=== PATIENT | male | born 1995 | race Caucasian/White ===

== ENCOUNTER 2021-10-29 21:40 | Emergency (ER) | payer BC ==
[2021-10-30] MEDS ORDERED: Ibuprofen 800 MG Tab PO ONE (01:12)
[2021-10-30] MEDS ORDERED: Acetaminophen 325 MG Tab PO ONE (01:12)
== END 2021-10-30 01:27 | disposition home or self-care (01) ==
LOC: MW.ED 10-30 00:33
DX: B34.9 Viral infection, unspecified (principal)
CPT/HCPCS: 99283; A9270; 99282

== ENCOUNTER 2023-01-03 17:32 | Emergency (ER) | payer OTHER, BC ==
[2023-01-03] MEDS ORDERED: Diphtheria,Pertussis(Acell),Tetanus Vaccine 0.5 ML Syringe IM ONE (18:01)
[2023-01-03] MEDS ORDERED: Lidocaine 1% PF 2 ML SDV INJECT ONE (18:37)
== END 2023-01-03 20:12 | disposition home or self-care (01) ==
LOC: MW.ED 17:32
DX: S09.90XA Unspecified injury of head, initial encounter (principal); S01.81XA Laceration without foreign body of other part of head, initial encounter; K08.89 Other specified disorders of teeth and supporting structures; Z23 Encounter for immunization; W01.0XXA Fall on same level from slipping, tripping and stumbling without subsequent striking against object, initial encounter
CPT/HCPCS: 12013; 70450; 70450-26; 70486; 70486-26; 90471; 99283; 99283-25; J3490

== ENCOUNTER 2024-04-09 10:35 | Emergency (ER) | payer BC, OTHER ==
[2024-04-09] MEDS: Morphine 4 MG/ML Syringe IVPUSH ONE (10:45)
[2024-04-09] MEDS: Ondansetron 4 MG/2 ML SDV IVPUSH STA (10:46)
[2024-04-09 11:43] LABS: BASOPHILS ABSOLUTE AUTO 0.04 K/uL (0.00-0.20); BASOPHILS PERCENT AUTO 0.4 % (0.0-1.0); EOSINOPHILS ABSOLUTE AUTO 0.08 K/uL (0.00-0.45); EOSINOPHILS PERCENT AUTO 0.7 % (0.0-6.0); HEMATOCRIT 41.5 % (42.0-52.0); IMMATURE GRAN ABSOLUTE AUTO 0.05 K/uL (0.00-0.05); IMMATURE GRAN PERCENT AUTO 0.4 % (0.0-0.4); LYMPHOCYTES ABSOLUTE AUTO 1.61 K/uL (1.00-4.80); LYMPHOCYTES PERCENT AUTO 14.4 % (24.0-44.0); MEAN CORPUSCULAR HEMOGLOBIN 31.3 pg (28.0-32.0); MEAN CORPUSCULAR HGB CONC 36.1 g/dL (32.0-36.0); MEAN CORPUSCULAR VOLUME 86.6 fL (83.0-99.0); MONOCYTES ABSOLUTE AUTO 0.68 K/uL (0.00-0.80); MONOCYTES PERCENT AUTO 6.1 % (0.0-8.0); NEUTROPHILS ABSOLUTE AUTO 8.69 K/uL (1.80-7.70); PLATELET COUNT,PLT 193 K/uL (150-400); RED BLOOD CELL COUNT 4.79 M/uL (4.52-5.90); WHITE BLOOD CELL COUNT,WBC 11.15 K/uL (3.9-11.3)
[2024-04-09 11:57] LABS: INR 0.99 (0.86-1.11)
[2024-04-09 12:21] LABS: A/G RATIO 1.1 (0.9-1.6); ALBUMIN 3.6 g/dL (3.4-5.0); BILIRUBIN TOTAL 0.3 mg/dL (0.2-1.0); CALCIUM 8.7 mg/dL (8.5-10.1); CARBON DIOXIDE,CO2 28.2 mmol/L (21.0-32.0); CREATININE 0.9 mg/dL (0.8-1.3); EST CRCL DRUG DOSING (CG) 127.3 mL/min; POTASSIUM,K 4.6 mmol/L (3.5-5.1); PROTEIN TOTAL,TP 6.8 g/dL (6.4-8.2)
[2024-04-09] MEDS: Iopamidol 755 MG/ML 500 ML Multipack Bottle IVPUSH STA (12:30)
[2024-04-09] MEDS: HYDROmorphone 1 MG/ML Syringe IVPUSH ONE (12:30)
== END 2024-04-09 14:10 | disposition home or self-care (01) ==
LOC: MW.ED 10:35
DX: S06.0X1A Concussion with loss of consciousness of 30 minutes or less, initial encounter (principal); S32.019A Unspecified fracture of first lumbar vertebra, initial encounter for closed fracture; Z75.8 Other problems related to medical facilities and other health care; V69.49XA Driver of heavy transport vehicle injured in collision with other motor vehicles in traffic accident, initial encounter
CPT/HCPCS: 36415; 70450; 71045; 71260; 72125; 72131; 72170; 73562; 73630; 74177; 80053; 83690; 85025; 85610; 86850; 86900; 86901; 96374; 96375; 99284; J1171; J2270; J2405; Q9967

== ENCOUNTER 2025-02-03 19:22 | Emergency (ER) | payer BC, OTHER ==
[2025-02-03] MEDS: Acetaminophen/HYDROcodone 325-10 MG Tab PO ONE (19:49)
[2025-02-03] MEDS: Tetracaine HCl/PF 0.5% 4 ML Bottle EYEBOTH ONE (20:29)
[2025-02-03] MEDS: Fluorescein 1 MG Ophth Strip EYEBOTH ONE (20:35)
== END 2025-02-03 21:15 | disposition home or self-care (01) ==
LOC: MW.ED 19:22
DX: S02.40EA Zygomatic fracture, right side, initial encounter for closed fracture (principal); S01.111A Laceration without foreign body of right eyelid and periocular area, initial encounter; S05.01XA Injury of conjunctiva and corneal abrasion without foreign body, right eye, initial encounter; Z75.3 Unavailability and inaccessibility of health-care facilities; Z88.0 Allergy status to penicillin; Z79.899 Other long term (current) drug therapy; W22.8XXA Striking against or struck by other objects, initial encounter
CPT/HCPCS: 12013; 70486; 99283; A9270; J2003; 99284; J3490